=== PATIENT | male | born 2000 | race Caucasian/White ===

== ENCOUNTER 2025-03-30 08:29 | Emergency (ER) | payer OTHER, SELFPAY ==
[2025-03-30 08:29] VITALS: BP 140/74; PULSE 78; RESP 16; TEMP 36.4; O2SAT 100; BMI 31.1
--- NOTE | 2025-03-30 08:58 | CT_ITS ---
EXAM: CT Head Without Intravenous Contrast CLINICAL INDICATION: PAIN TECHNIQUE: Axial computed tomography images of the head/brain without intravenous contrast. This CT exam was performed using one or more of the following dose reduction techniques: automated exposure control, adjustment of the mA and/or kV according to patient size, and/or use of iterative reconstruction technique. COMPARISON: No relevant prior studies available. FINDINGS: BRAIN AND EXTRA-AXIAL SPACES: No acute intracranial hemorrhage, midline shift or mass effect. If symptoms persist, further evaluation with MRI is recommended. No significant white matter disease. BONES/JOINTS: Unremarkable. No acute fracture. SOFT TISSUES: Unremarkable. SINUSES: Unremarkable as visualized. No acute sinusitis. MASTOID AIR CELLS: Unremarkable as visualized. No mastoid effusion. CT/Brain/Head without Contrast IMPRESSION: No acute intracranial hemorrhage, midline shift or mass effect. If symptoms per sist, further evaluation with MRI is recommended. Reading Location: [id number]
--- NOTE | 2025-03-30 08:59 | EX.ED.VIS.HA ---
HPI History of Present Illness Chief Complaint: Headache Informant: patient Narrative Narrative: Healthy 24-year-old [facility] male presenting with almost 1 week of headaches that have started occipital but now bifrontal as well, neck soreness, dizziness lightheadedness when he sits up or stands up without syncope or near syncope, and dizziness not associated with any nausea or vomiting, but symptoms are associated with having chills and then feeling hot as if he had a fever although he has not checked his temperature. He states this all started suddenly while he was working, he has been excessively fatigued ever since, the headache has been constant, the other symptoms come and go. Has never triggered the dizziness with changes in position other than above or turning his head or rolling over in bed. No nausea or vomiting or diarrhea. No chest or abdominal pain. No cough, congestion, sore throat, sinus pressure, earache, or inability to turn his head/neck. No numbness or tingling or weakness focally anywhere. No vision changes or photophobia. No known sick contacts. No travel out of the area or the country. [facility] Medical History no medical history no medical history Home Medications ?Medication ?Instructions ?Recorded ?Last Taken ?Type acetaminophen 500 mg capsule 1,000 mg PO Q6H PRN pain 03/30/25 03/29/25 History ibuprofen 200 mg tablet (Advil) 400 mg PO Q6H PRN pain 03/30/25 03/30/25 History Allergy/AdvReac Type Severity Reaction Status Date / Time No Known Allergies Allergy Verified 03/30/25 08:29 Social History Smoking Status: Current every day smoker tobacco type: cigarettes ROS ROS ED Constitutional Constitutional ED: Reports chills, fever(s) and subjective Eyes Eyes: Denies change in vision, diplopia or photophobia ENT ENT ED: Denies ear pain, rhinorrhea, sinus pain, sinus pressure, sore throat or vertigo Cardiovascular Cardiovascular: Reports lightheadedness; Denies chest pain, palpitations or syncope Respiratory/Chest Respiratory/Chest: Denies cough or dyspnea Gastrointestinal Gastrointestinal: Denies abdominal pain, diarrhea, nausea or vomiting Genitourinary Genitourinary ED: Denies dysuria or hematuria Musculoskeletal Musculoskeletal: Reports neck pain; Denies back pain Integumentary Denies abscess or rash Neurologic Neurologic: Reports headache(s); Denies paresthesias or weakness Psychiatric Psychiatric: Denies anxiety or suicidal thoughts EXAM Physical Exam Const Vital Signs: 03/30/25 08:29 Temperature 97.6 F L Temperature Source Oral Pulse Rate 78 Respiratory Rate 16 Blood Pressure 140/74 H Blood Pressure Mean 96 Pulse Ox 100 Positive well nourished and well developed General Appearance ED: well developed and NAD HEENT Reports TM's clear and moist mucous membranes HEENT Narrative: Posterior oropharynx is clear and normal. No tongue elevation or lesions. No sinus tenderness. normocephalic and atraumatic Tympanic Membrane ED: Yes TM's clear Eyes PERRL and EOMs intact bilaterally Neck full ROM, no lymphadenopathy, supple and no meningeal signs Neck Narrative: Full range including chin to chest without apparent limitation. Negative Kernig negative Brudzinski. Resp normal respiratory effort and clear to auscultation bilaterally Cardio regular rate, regular rhythm and no murmurs GI non-tender and non-distended Auscultation: normoactive bowel sounds Palpation: soft Back/Spine no CVA tenderness General Back: other FROM Extremity normal to inspection General Extremety ED: Negative for edema, pulses abnormal or tenderness General Extremity: Negative for edema or pulses abnormal Neuro oriented x3, CN's II-XII intact bilaterally and no sensory deficits noted Neuro Narrative: Normal [id number] and [id number] bilaterally. Duy Coma Scale: document GCS findings Spontaneous Obeys Commands Oriented 15 Sensorium / Orientation: awake and alert Motor Exam: strength 5/5 throughout Skin no rashes or lesions noted and no wounds MDM MDM MDM Narrative Medical decision making narrative: Patient has fairly nonspecific symptoms and there is a wide differential, including infection, subarachnoid hemorrhage, metabolic derangements such as hypercalcemia. With regards to the possibility of infections, we do not know if he is having true fevers or not any does not have one here and his vital signs are normal also, but the possibility includes a plethora of viruses including Lara-Lucas viral infection although he does not have palpable lymphadenopathy, abdominal pain/tenderness, and he has had no sore throat throughout although that is not prerequisite for this, as well as influenza although the prevalence is way down compared with several months ago, and even less likely to be bacterial meningitis, urinary infection, or pneumonia although he is a smoker. Therefore two-view chest x-ray was obtained, it is negative for pneumonia, CT of the head was obtained which is negative for subarachnoid hemorrhage or other acute intracranial abnormality, labs including a monotest were obtained and all that is normal/negative, and his COVID/influenza test is negative. During all this he was given Toradol which helped. Although meningitis was considered, I do not think he needs an LP to look for bacterial meningitis, his neck exam is very benign, he has no photophobia, and he has no symptoms of encephalitis. His vital signs including his blood pressure are normal. Patient is reassured, all of these tests are normal, his white blood count is on the low and, he is not neutropenic, there is predilection for monocytes of unclear etiology, I expect the etiology of this to be viral but I do not have a rapid test showing the etiology since he is negative for the ones that we are testing for. Reassured, close outpatient follow-up if not improving after 5-7 days. Lab Data Attestation: I reviewed the patient's lab results. Labs: Laboratory Results - last 24 hr 03/30/25 03/30/25 09:05 09:09 WBC 3.6 L RBC 5.09 Hgb 15.8 Hct 45.0 MCV 88.4 MCH 31.0 MCHC 35.1 RDW Std Deviation 41.1 RDW Coeff of John 12.6 Plt Count 158 MPV 9.2 Immature Gran % (Auto) 0.600 Neut % (Auto) 51.3 Lymph % (Auto) 30.9 [place] % (Auto) 13.8 H Eos % (Auto) 2.8 Baso % (Auto) 0.6 Absolute Neuts (auto) 1.9 L Absolute Lymphs (auto) 1.12 Nucleated RBC % 0 Sodium 140 Potassium 4.1 Chloride 105 Carbon Dioxide 26.6 Anion Gap 9 BUN 8 Creatinine 0.83 Estim Creat Clear Calc 161.44 Est GFR (MDRD) Non-Af 125 BUN/Creatinine Ratio 9.3 L Glucose 97 Calcium 9.3 Total Bilirubin 1.26 AST 27 ALT 34 Alkaline Phosphatase 56 Total Protein 6.6 Albumin 4.2 Globulin 2.5 Albumin/Globulin Ratio 1.7 Urine Color Yellow Urine Clarity Clear Urine pH 7.0 Ur Specific [place] 1.005 Urine Protein Negative Urine Glucose (UA) Normal Urine Ketones Negative Urine Occult Blood Negative Urine Nitrite Negative Urine Bilirubin Negative Urine Urobilinogen Normal Ur Leukocyte Esterase Negative Urine RBC 0 SEEN Urine WBC 0 SEEN Ur Squamous Epith Cells 0 SEEN Urine Bacteria 0 SEEN Urine Mucus 0 SEEN Monoscreen Negative Radiography Diagnostic Testing: Clinical Impression(s) from Imaging Studies Brain CT 03/30/25 08:58 IMPRESSION: No acute intracranial hemorrhage, midline shift or mass effect. If symptoms persist, further evaluation with MRI is recommended. Reading Location: [facility] Chest X-Ray 03/30/25 09:02 IMPRESSION: No acute cardiopulmonary process. Reading Location: [facility] Discharge Plan Triage Chief Complaint: Headache ED Provider: Kristian Alonso Dx/Rx/DC Orders Clinical Impression: Acute viral syndrome Instructions: ED Viral Syndrome (Adult) Prescriptions: No Action acetaminophen 500 mg capsule 1,000 mg PO Q6H PRN (Reason: pain) ibuprofen [Advil] 200 mg tablet 400 mg PO Q6H PRN (Reason: pain) Primary Care Provider: Care Physician,No Primary Referrals: Doctor,Your [Non-Staff] - 5-7 Days Print Language: Mohawk Disposition Disposition: Home, Self Care
--- NOTE | 2025-03-30 09:02 | RAD_ITS ---
EXAM: XR Chest, 2 Views CLINICAL INDICATION: FEVER, SMOKER TECHNIQUE: Frontal and lateral views of the chest. COMPARISON: No relevant prior studies available. FINDINGS: LUNGS AND PLEURAL SPACES: Unremarkable. No consolidation. No pneumothorax. HEART: Unremarkable. No cardiomegaly. MEDIASTINUM: Unremarkable. Normal mediastinal contour. BONES/JOINTS: Unremarkable. No acute fracture. RAD/Chest PA and Lateral IMPRESSION: No acute cardiopulmonary process. Reading Location: [id number]
[2025-03-30] MEDS: Ketorolac 30 MG/ML Syringe IV (09:11)
[2025-03-30 09:14] LABS: Absolute Lymphocyte Count 1.12 X10^3/uL (0.83-4.51); Absolute Neutrophil Count 1.9 X10^3/uL (2.0-7.7); Basophil# 0.02 X10^3/uL; Basophil% 0.6 % (0-1); Eosinophils% 2.8 % (0-5); Hemoglobin 15.8 g/dL (13.0-16.5); Lymphocyte # 1.12 X10^3/ul (0.83-4.51); Lymphocyte % 30.9 % (19-41); Mean Corp Hgb Conc 35.1 g/dL (32-36); Mean Corpuscular Volume 88.4 fL (80-94); Mean Platelet Vol. 9.2 fl (6.2-12.0); Monocyte% 13.8 % (0-10); NRBC Flagged by Analyzer 0 % (0-5); Neutrophil # 1.86 X10^3/uL (2.7-7.7); Neutrophil % 51.3 % (47-70); Platelet Count 158 K/mm3 (150-450); RBC Distribution Width CV 12.6 % (11.6-14.6); RBC Distribution Width SD 41.1 fl (35.1-43.9); Red Blood Count 5.09 M/mm3 (4.6-6.2); White Blood Count 3.6 K/mm3 (4.4-11.0)
[2025-03-30 09:22] LABS: Bacteria 0 SEEN /hpf (None Seen); Mucous, Urine 0 SEEN /hpf (<or=2+); Red Blood Cells-Urine 0 SEEN /hpf (0-5); Squamous Epithelial Cells - UA 0 SEEN /hpf (0-5); White Blood Cells 0 SEEN /hpf (0-5)
[2025-03-30 09:31] LABS: Color, Urine Yellow (Yellow); Glucose, Dipstick Normal (Normal); Ketone-Dipstick Negative (Negative); Leukocyte Esterase-Dipstick Negative /ul (Negative); Nitrite-Dipstick Negative (Negative); Occult Blood-Urine Negative /ul (Negative); Protein-Dipstick Negative (Negative); Specific Gravity, Urine 1.005 (1.002-1.030); Urine Bilirubin Dipstick Negative (Negative); Urine Clarity Clear (Clear); Urine Urobilinogen Normal (Normal)
[2025-03-30 09:32] LABS: Internal QC Validated? YES +Cl - CLEAR BKGD; Monotest Negative (Negative); Record Kit Lot#, Mono 13244130
[2025-03-30 09:41] LABS: ALB/GLOB Ratio 1.7 RATIO (0.9-2.4); AST(SGOT) 27 U/L (<=37); Alanine Aminotransfer ALT/SGPT 34 U/L (<=46); Albumin, Serum 4.2 g/dL (3.5-5.0); Alkaline Phosphatase 56 U/L (40-129); Anion Gap 9 (5-15); BUN 8 mg/dL (4-19); BUN/Creat Ratio 9.3 RATIO (10-20); Calcium,Total 9.3 mg/dL (7.6-11.0); Carbon Dioxide 26.6 mmol/L (21.0-32.0); Chloride 105 mmol/L (98-108); Creatinine, Serum 0.83 mg/dL (0.70-1.20); EST Glomerular Filtration Rate 125 (>60); Estimated Creatinine Clearance 161.44 ml/min (50-250); Globulin 2.5 g/dL (2.2-4.2); Glucose 97 mg/dL (70-99); Potassium 4.1 mmol/L (3.3-5.1); Protein, Total 6.6 g/dL (5.9-8.4); Sodium Level 140 mmol/L (133-145); Total Bilirubin 1.26 mg/dL (0.00-1.30)
[2025-03-30 10:29] VITALS: BP 132/60; PULSE 58; RESP 16; O2SAT 98
[2025-03-30 10:39] VITALS: BP 132/60; PULSE 58; RESP 16; TEMP 36.4; O2SAT 98
== END 2025-03-30 10:43 | disposition home or self-care (01) ==
PROVIDERS: Emergency Provider Emergency Medicine; Visit Provider Emergency Medicine
DX: B34.9 Viral infection, unspecified (principal); R51.9 Headache, unspecified; F17.210 Nicotine dependence, cigarettes, uncomplicated
CPT/HCPCS: 70450; 71046; 80053; 81001; 85025; 86308; 87631; 96374; 99282; A4216